=== PATIENT | male | born 1960 | race Hispanic/Latino ===

== ENCOUNTER 2022-04-30 11:55 | Inpatient (IN) | payer OTHER, SELFPAY ==
[2022-04-30] MEDS ORDERED: CEFAZOLIN 2 GM VIAL ONE (12:29)
[2022-04-30] MEDS ORDERED: Boostrix 0.5 ML (Tdap) VIAL ONE (12:29)
[2022-04-30] MEDS ORDERED: Lidocaine 1% MPF 2 ML VIAL ONE ×2 (12:29→15:11)
[2022-04-30] MEDS ORDERED: Ondansetron PF 4 MG/2 ML Vial IVP PRN (13:28)
[2022-04-30] MEDS ORDERED: Morphine 2 MG/ML VIAL SLOW IVP PRN (13:28)
[2022-04-30] MEDS ORDERED: hydrALAZINE 20 MG/ML VIAL SLOW IVP PRN (13:28)
[2022-04-30] MEDS ORDERED: Ondansetron ODT 4 MG TAB PO PRN (13:28)
[2022-04-30] MEDS ORDERED: Promethazine HCl 25 MG/ML VIAL IM PRN (13:28)
[2022-04-30] MEDS ORDERED: traMADol HCl 50 MG TAB PO PRN (13:30)
[2022-04-30 13:46] LABS: #Eosinphils 0.1 thou/uL (0.0-0.7); #Monocytes 0.5 thou/uL (0.11-0.59); #Neutrophils 8.1 thou/uL (1.40-6.50); %Basophils 0.1 % (0.0-1.0); %Eosinophils 1.2 % (0.0-10.0); %Lymphocytes 18.8 % (21.0-51.0); %Monocytes 4.5 % (0.0-10.0); %Neutrophils 75.5 % (42.0-75.0); Hemoglobin 16.2 g/dL (14.0-18.0); Mean Corpuscular HGB CONC 33.8 g/dL (32.0-36.0); Mean Corpuscular Volume 97.6 fL (78.0-98.0); Mean Platelet Volume 9.3 fL (7.4-10.4); Platelet Count 148 thou/uL (130-400); Red Blood Cell (RBC) Count 4.93 mill/uL (4.70-6.10); White Blood Cell (WBC) Count 10.7 thou/uL (4.8-10.8)
[2022-04-30 13:57] LABS: ALT (SGPT) 41 U/L (8-55); AST (SGOT) 41 U/L (5-34); Albumin 4.6 g/dL (3.4-4.8); Alkaline Phosphatase 83 U/L (40-110); Anion Gap 16 mmol/L (10-20); BUN (Urea Nitrogen) 14 mg/dL (8.4-25.7); Calc. Creatinine Clearance 0 mL/min (70-130); Carbon Dioxide 20 mmol/L (23-31); Chloride 108 mmol/L (98-107); Estimated GFR 95; Globulin 2.6 g/dL (2.4-3.5); Glucose 192 mg/dL (80-115); Potassium 3.9 mmol/L (3.5-5.1); Protein, Total 7.2 g/dL (5.8-8.1); Sodium 140 mmol/L (136-145)
[2022-04-30] MEDS ORDERED: Dextrose 50% Abboject 50 ML SYRINGE SLOW IVP PRN (14:09)
[2022-04-30] MEDS ORDERED: Dextrose 5% in Water 1,000 ML IV PRN (14:09)
[2022-04-30 14:36] LABS: Acetaminophen Less than 10.0 mcg/mL (10.0-30.0); Alcohol Less than 10 mg/dL (Less than 10); Salicylate Less than 8.0 mg/dL (15.0-30.0)
[2022-04-30] MEDS ORDERED: CEFAZOLIN 2 GM in Sodium Chloride 0.9% 100 ML IVPB SCH (14:45)
[2022-04-30 15:45] LABS: SARS-CoV-2 NAA Rapid Test Not Detected (NotDetected)
[2022-04-30] MEDS ORDERED: Bacitracin Zinc Ointment 30 gm TUBE TOP SCH (18:30)
[2022-04-30 19:18] VITALS: BMI 26.6
[2022-04-30] MEDS: Acetaminophen 500 MG TAB PO SCH ×2 (19:44→19:45)
[2022-04-30] MEDS: Sodium Chloride 0.9% 1,000 ML IV SCH ×3 (19:45→22:38)
[2022-04-30] MEDS: traMADol HCl 50 MG TAB PO SCH ×2 (19:46→22:37)
[2022-04-30] MEDS: Gabapentin 300 MG CAP PO SCH (19:46)
[2022-04-30] MEDS ORDERED: CEFAZOLIN 1 GM VIAL SLOW IVP SCH (22:00)
[2022-04-30] MEDS: CEFAZOLIN 2 GM in Sodium Chloride 0.9% 100 ML IVPB SCH (22:38)
[2022-04-30] MEDS: Senokot S 8.6-50 MG TAB PO SCH (23:58)
[2022-05-01] MEDS: Acetaminophen 500 MG TAB PO SCH ×4 (03:06→21:12)
[2022-05-01 05:34] LABS: #Lymphocytes 1.2 thou/uL (1.20-3.40); #Monocytes 0.8 thou/uL (0.11-0.59); #Neutrophils 7.2 thou/uL (1.40-6.50); %Basophils 0.1 % (0.0-1.0); %Eosinophils 0.3 % (0.0-10.0); %Lymphocytes 12.7 % (21.0-51.0); %Monocytes 8.4 % (0.0-10.0); %Neutrophils 78.5 % (42.0-75.0); Hemoglobin 14.7 g/dL (14.0-18.0); Mean Corpuscular HGB CONC 32.7 g/dL (32.0-36.0); Mean Corpuscular Hemoglobin 32.2 pg (27.0-31.0); Mean Corpuscular Volume 98.4 fL (78.0-98.0); Mean Platelet Volume 8.8 fL (7.4-10.4); Platelet Count 133 thou/uL (130-400); RBC Distribution Width 12.2 % (11.5-14.5); Red Blood Cell (RBC) Count 4.58 mill/uL (4.70-6.10); White Blood Cell (WBC) Count 9.2 thou/uL (4.8-10.8)
[2022-05-01 05:44] LABS: CK (CPK) 762 U/L (30-200); Phosphorus 3.1 mg/dL (2.3-4.7)
[2022-05-01] MEDS: CEFAZOLIN 2 GM in Sodium Chloride 0.9% 100 ML IVPB SCH ×4 (05:52→21:19)
[2022-05-01] MEDS: traMADol HCl 50 MG TAB PO SCH ×3 (05:52→17:51)
[2022-05-01 05:53] LABS: Anion Gap 14 mmol/L (10-20); BUN (Urea Nitrogen) 12 mg/dL (8.4-25.7); Calc. Creatinine Clearance 100 mL/min (70-130); Calcium 8.4 mg/dL (7.8-10.44); Carbon Dioxide 20 mmol/L (23-31); Chloride 106 mmol/L (98-107); Estimated GFR 100; Glucose 195 mg/dL (80-115); Magnesium 1.8 mg/dL (1.6-2.6); Potassium 4.1 mmol/L (3.5-5.1); Sodium 136 mmol/L (136-145)
[2022-05-01] MEDS: Sodium Chloride 0.9% 1,000 ML IV SCH (06:15)
[2022-05-01] MEDS: Gabapentin 300 MG CAP PO SCH ×3 (08:44→21:12)
[2022-05-01] MEDS: Senokot S 8.6-50 MG TAB PO SCH ×2 (08:45→21:17)
[2022-05-01] MEDS: Multivitamin W/ Minerals 1 TAB PO SCH (08:45)
[2022-05-01] MEDS: Polyethylene Glycol 3350 17 GM Packet PO SCH (08:45)
[2022-05-01] MEDS ORDERED: Sodium Chloride 0.9% 100 ML ONE (13:55)
[2022-05-01] MEDS ORDERED: CEFAZOLIN 2 GM VIAL ONE (13:56)
[2022-05-01] MEDS ORDERED: fentaNYL Citrate/PF 100 MCG/2 ML SYRINGE ONE ×2 (14:21→16:43)
[2022-05-01] MEDS ORDERED: Propofol 500 MG/50 ML VIAL ONE (14:21)
[2022-05-01] MEDS ORDERED: Lidocaine 1% PF 5 ML VIAL ONE (14:45)
[2022-05-01] MEDS ORDERED: PROPOFOL 200 MG/20 ML VIAL ONE (14:45)
[2022-05-01] MEDS ORDERED: Dexamethasone 20 MG/5 ML VIAL ONE (14:45)
[2022-05-01] MEDS ORDERED: Ondansetron PF 4 MG/2 ML Vial ONE (14:45)
[2022-05-01] MEDS ORDERED: Bupivacaine PF 0.5% 30 ML VIAL ONE (15:16)
[2022-05-01] MEDS ORDERED: Bupivacaine/Epinephrine 0.25% 30 ML VIAL ONE (15:16)
[2022-05-01] MEDS ORDERED: SUGAMMADEX SODIUM 200 MG/2 ML VIAL ONE ×2 (16:11→16:16)
[2022-05-01] MEDS ORDERED: Meperidine HCl/PF 25 MG/ML VIAL SLOW IVP PRN (16:33)
[2022-05-01] MEDS ORDERED: Promethazine HCl 25 MG/ML VIAL IM PRN (16:33)
[2022-05-01] MEDS ORDERED: HYDROmorphone 2 MG/ML VIAL SLOW IVP PRN (16:33)
[2022-05-01] MEDS ORDERED: Fentanyl 100 MCG/2 ML VIAL ONE (17:02)
[2022-05-01] MEDS: Cyclobenzaprine 10 MG TAB PO PRN (21:12)
[2022-05-01] MEDS: Insulin Regular 300 UNITS/3 ML VIAL SC PRN (21:38)
[2022-05-02] MEDS: Acetaminophen 500 MG TAB PO SCH ×3 (01:29→13:24)
[2022-05-02] MEDS: traMADol HCl 50 MG TAB PO SCH ×3 (01:30→13:23)
[2022-05-02] MEDS: CEFAZOLIN 2 GM in Sodium Chloride 0.9% 100 ML IVPB SCH ×2 (01:59→05:20)
[2022-05-02] MEDS: Cyclobenzaprine 10 MG TAB PO PRN (05:19)
[2022-05-02] MEDS: Insulin Regular 300 UNITS/3 ML VIAL SC PRN (05:27)
[2022-05-02 05:32] LABS: #Lymphocytes 1.5 thou/uL (1.20-3.40); #Monocytes 0.9 thou/uL (0.11-0.59); %Basophils 0.1 % (0.0-1.0); %Eosinophils 0.2 % (0.0-10.0); %Lymphocytes 14.4 % (21.0-51.0); %Monocytes 8.4 % (0.0-10.0); Hemoglobin 14.7 g/dL (14.0-18.0); Mean Corpuscular HGB CONC 34.4 g/dL (32.0-36.0); Mean Corpuscular Hemoglobin 34.1 pg (27.0-31.0); Mean Platelet Volume 8.9 fL (7.4-10.4); Platelet Count 131 thou/uL (130-400); RBC Distribution Width 11.8 % (11.5-14.5); Red Blood Cell (RBC) Count 4.31 mill/uL (4.70-6.10); White Blood Cell (WBC) Count 10.3 thou/uL (4.8-10.8)
[2022-05-02 05:57] LABS: Anion Gap 14 mmol/L (10-20); BUN (Urea Nitrogen) 13 mg/dL (8.4-25.7); Calc. Creatinine Clearance 97 mL/min (70-130); Calcium 8.9 mg/dL (7.8-10.44); Carbon Dioxide 23 mmol/L (23-31); Chloride 104 mmol/L (98-107); Estimated GFR 100; Glucose 186 mg/dL (80-115); Phosphorus 3.4 mg/dL (2.3-4.7); Potassium 4.2 mmol/L (3.5-5.1); Sodium 137 mmol/L (136-145)
[2022-05-02] MEDS: Polyethylene Glycol 3350 17 GM Packet PO SCH (08:51)
[2022-05-02] MEDS: Gabapentin 300 MG CAP PO SCH ×2 (08:51→15:00)
[2022-05-02] MEDS: Multivitamin W/ Minerals 1 TAB PO SCH (08:51)
[2022-05-02] MEDS ORDERED: Senokot S 8.6-50 MG TAB PO SCH (09:00)
[2022-05-02] MEDS ORDERED: Famotidine 20 MG TAB PO SCH (09:00)
[2022-05-02 09:21] VITALS: TEMP 98.2
[2022-05-02 12:40] VITALS: BP 151/91
== END 2022-05-02 16:20 | disposition home or self-care (01) | DRG 511 ==
LOC: ERS 11:55 → SJJU 13:30 → EDBD 13:30
PROVIDERS: ADMIT Specialist; ATTEND Specialist
PROC: 0PSJ04Z Reposition Left Radius with Internal Fixation Device, Open Approach (ICD-10-PCS; principal; 2022-05-01)
PROC: 0PSH04Z Reposition Right Radius with Internal Fixation Device, Open Approach (ICD-10-PCS; 2022-05-01)
DX: S52.502A Unspecified fracture of the lower end of left radius, initial encounter for closed fracture (principal); S02.841A Fracture of lateral orbital wall, right side, initial encounter for closed fracture; S52.611A Displaced fracture of right ulna styloid process, initial encounter for closed fracture; S52.501A Unspecified fracture of the lower end of right radius, initial encounter for closed fracture; Z20.822 Contact with and (suspected) exposure to COVID-19; W17.89XA Other fall from one level to another, initial encounter; S52.612A Displaced fracture of left ulna styloid process, initial encounter for closed fracture; S01.81XA Laceration without foreign body of other part of head, initial encounter; E11.9 Type 2 diabetes mellitus without complications; Z79.84 Long term (current) use of oral hypoglycemic drugs; Y93.H3 Activity, building and construction; Y92.61 Building [any] under construction as the place of occurrence of the external cause; Y99.0 Civilian activity done for income or pay
CPT/HCPCS: 25605; 36415; 36416; 70450; 70486; 72125; 76000; 76377; 80048; 80053; 80307; 82550; 83735; 84100; 85025; 90471; 90715; 93005; 96374; C1713; G0390; J0690; J1100; J2405; J2704; J3010; J3490; J7050; S0020; U0002